=== PATIENT | female | born 1945 | race African-American/Black ===

== ENCOUNTER 2020-12-16 10:49 | Observation (INO) ==
[2020-12-16] MEDS ORDERED: ONDANSETRON 4 MG/2 ML VIAL IV PRN (12:33)
[2020-12-16] MEDS ORDERED: ACETAMINOPHEN 325 MG TABLET PO PRN (12:33)
[2020-12-16 13:17] LABS: Basophils % 0.2 % (0.0-0.8); Eosinophils % 0.2 % (0.00-10.9); Hematocrit 43.7 VOL% (35.7-47.0); Hemoglobin 13.9 GM/DL (12.0-16.0); Immature Granulocytes % 0.5 %; Immature Granulocytes Absolute 0.03 #; Lymphocytes # 1.3 10*3/uL (1.4-4.0); Lymphocytes % 24.4 % (21.3-54.2); Mean Corpuscular HGB Conc 31.8 GM/DL (32-36); Mean Corpuscular Volume 92.4 FL (87-102); Monocytes % 7.1 % (1.7-12.7); Neutrophils % 67.6 % (38.7-73.9); Platelet Count 224 T/CUMM (130-400); Red Blood Count 4.73 MC/CUMM (3.8-5.5); Red Cell Distribution Width 12.3 % (9.3-17.3); White Blood Count 5.5 T/CUMM (4-12)
[2020-12-16 13:47] LABS: Albumin 3.7 G/DL (3.4-5.0); Bilirubin,Total 0.6 MG/DL (0.20-1.00); Calcium 9.2 MG/DL (8.5-10.1); Osmolality,Calculated 272.8 MOS/KG (273-304); Potassium 4.4 MMOL/L (3.5-5.1); Total Protein 7.4 G/DL (6.4-8.2)
[2020-12-16] MEDS: hydrALAZINE 20 MG/1 ML VIAL IV PRN (17:54)
[2020-12-16] MEDS: DOCUSATE SODIUM 100 MG CAPSULE PO SCH (22:21)
[2020-12-17] MEDS: hydrALAZINE 20 MG/1 ML VIAL IV PRN (00:28)
[2020-12-17 05:49] LABS: Risk Ratio 4.17; VLDL Cholesterol 22.2 MG/DL
[2020-12-17 06:06] LABS: Albumin 3.3 G/DL (3.4-5.0); Bilirubin,Total 0.7 MG/DL (0.20-1.00); Osmolality,Calculated 273.7 MOS/KG (273-304); Total Protein 6.7 G/DL (6.4-8.2)
[2020-12-17] MEDS: DOCUSATE SODIUM 100 MG CAPSULE PO SCH ×2 (09:32→21:09)
[2020-12-17] MEDS: ENALAPRIL 20 MG TABLET PO SCH (09:32)
[2020-12-17] MEDS: PANTOPRAZOLE 40 MG TABLET PO SCH (09:32)
[2020-12-17] MEDS: amLODIPine 5 MG TABLET PO SCH (09:32)
[2020-12-17] MEDS: ASPIRIN EC 81 MG TABLET PO SCH (09:32)
[2020-12-18] MEDS: PANTOPRAZOLE 40 MG TABLET PO SCH (06:20)
[2020-12-18] MEDS: DOCUSATE SODIUM 100 MG CAPSULE PO SCH (08:53)
[2020-12-18] MEDS: amLODIPine 5 MG TABLET PO SCH (08:53)
[2020-12-18] MEDS: ENALAPRIL 20 MG TABLET PO SCH (08:53)
[2020-12-18] MEDS: ASPIRIN EC 81 MG TABLET PO SCH (08:53)
[2020-12-18 11:32] VITALS: BP 159/65
== END 2020-12-18 15:10 | disposition home or self-care (01) ==
LOC: INTOOBSV 10:56 → N.5E 10:56
PROVIDERS: ADMIT Family Medicine; ATTEND Family Medicine